=== PATIENT | female | born 1945 | race Caucasian/White ===

== ENCOUNTER → 2016-09-27 | Outpatient (CLI) | payer MEDICARE ==
[2016-09-27 15:08] LABS: CH 30.1; CHCM 32.3; HCT 43.8 % (34.0-46.0); HDW 2.46; HGB 13.9 gm/dL (11.4-16.0); MCH 29.8 pg (25.0-35.0); MCHC 31.8 g/dL (31.0-37.0); MCV 93.6 fL (80.0-100.0); Mean Platelet Volume 8.5; RBC 4.68 m/uL (3.80-5.40); RDW 13.6 % (11.5-15.5); WBC 5.7 k/uL (3.8-10.6)
[2016-09-27 15:12] LABS: ALT 57 U/L (9-52); AST 34 U/L (14-36); Alkaline Phosphatase 66 U/L (38-126); Anion Gap 13 mmol/L; Blood Urea Nitrogen 11 mg/dL (7-17); Calcium 9.8 mg/dL (8.4-10.2); Carbon Dioxide 27 mmol/L (22-30); Chloride 104 mmol/L (98-107); Cholesterol 210 mg/dL (<200); Glucose 93 mg/dL (74-99); HDL Cholesterol 94 mg/dL (40-60); Non-African American GFR(MDRD) >60 (>60 ml/min/1.73 sqM); Potassium 4.2 mmol/L (3.5-5.1); Sodium 144 mmol/L (137-145); Total Protein 7.9 g/dL (6.3-8.2); Triglycerides 94 mg/dL (<150)
[2016-09-27 15:15] LABS: Rheumatoid Factor, Qnt 42 IU/mL (<12)
[2016-09-27 15:54] LABS: Hemoglobin A1C 5.1 % (4.2-6.1)
[2016-09-27 16:24] LABS: Erythrocyte Sedimentation Rate 13 mm/hr (0-20)
== END | disposition home or self-care (01) ==
LOC: LABWHC1 14:22
PROVIDERS: ATTEND Family Medicine
DX: Z01.812 Encounter for preprocedural laboratory examination (principal); H93.19 Tinnitus, unspecified ear; R51 Headache; I10 Essential (primary) hypertension; Z79.899 Other long term (current) drug therapy
CPT/HCPCS: 36415; 80053; 80061; 83036; 84443; 85027; 85652; 86431

== ENCOUNTER → 2016-10-04 | Outpatient (CLI) | payer MEDICARE ==
--- NOTE | 2016-10-04 14:54 | MR ---
EXAMINATION TYPE: MR iac wo/w con DATE OF EXAM: 10/04/2016 1:06 PM COMPARISON: NONE, no prior MRI or CT available at this location. HISTORY: Tinnitus, hear loss, cholesteatoma CONTRAST: Performed utilizing 15 mL intravenous MultiHance gadolinium contrast. TECHNIQUE: Multiplanar, multiecho imaging on a 3.0 Freda magnet is performed through the brain. Atte ntion is paid to the internal auditory canals with thin section imaging. Postcontrast imaging is per formed through the internal auditory canals. FINDINGS: Craniovertebral junction is normal. The pituitary is normal. Diffusion-weighted imaging i s performed. No suspicious hyperintensity is present to suggest an acute intracranial infarct or acu te ischemic area. Signal within the brain has scattered punctate white matter changes in the centrum semiovale and periventricular regions. Findings are nonspecific but could be related to chronic whit e matter ischemic changes. Thin section imaging is performed through the internal auditory canals and cerebellar pontine angles. No cerebellar pontine angle masses are evident. The internal auditory canals appear normal without expansion or erosion. Postcontrast imaging was performed. No suspicious enhancement is evident wi thin the internal auditory canals or the included portions of the brain. There is fluid within left mastoid air cells. Mild mastoiditis may be present. Clinical correlation i s recommended. Portion of the signal could be related to prior mastoidectomy posterior to the middle ear. IMPRESSIONS: 1. Post left mastoidectomy. Small amount of fluid at the inferior residual mastoid air cells may nael in present, correlate for mild mastoiditis. Suspicious recurrent cholesteatoma is not evident. 2. Scattered periventricular white matter hyperintensities, likely on the basis of chronic white fariba er ischemic type changes.
== END | disposition home or self-care (01) ==
LOC: RADMRIMAIN 10:39
PROVIDERS: ATTEND Otolaryngology
DX: R90.82 White matter disease, unspecified (principal); H91.90 Unspecified hearing loss, unspecified ear; H93.19 Tinnitus, unspecified ear; H71.90 Unspecified cholesteatoma, unspecified ear; Z98.890 Other specified postprocedural states
CPT/HCPCS: 70553; A9577

== ENCOUNTER → 2018-08-20 | Outpatient (CLI) | payer MEDICARE ==
--- NOTE | 2018-08-21 13:33 | MM ---
Reason for exam: screening (asymptomatic). Last mammogram was performed 1 year and 1 month ago. History: Patient is postmenopausal. Took estrogen for 10 years. Physical Findings: A clinical breast exam by your physician is recommended on an annual basis and results should be correlated with mammographic findings. MG 3D Screening Mammo W/Cad Bilateral CC and MLO view(s) were taken. Prior study comparison: July 23, 2017, bilateral MG 3d screening mammo w/cad. July 05, 2016, bilateral MG screening mammo w CAD. The breast tissue is heterogeneously dense. This may lower the sensitivity of mammography. Benign appearing bilateral calcifications. No suspicious abnormality. No significant changes when compared with prior studies. ASSESSMENT: Benign, BI-RAD 2 RECOMMENDATION: Routine screening mammogram of both breasts in 1 year.
== END ==
LOC: RADMAMWWP 11:16
PROVIDERS: ATTEND Family Medicine
DX: Z12.31 Encounter for screening mammogram for malignant neoplasm of breast (principal)
CPT/HCPCS: 77063; 77067

== ENCOUNTER → 2019-03-18 | Outpatient (CLI) | payer MEDICARE | END | disposition home or self-care (01) | LOC: NEUROMAIN 08:53 | PROVIDERS: ATTEND Otolaryngology | DX: Z53.9 Procedure and treatment not carried out, unspecified reason (principal) ==

== ENCOUNTER → 2019-04-24 | Outpatient (CLI) | payer MEDICARE ==
--- NOTE | 2019-04-25 14:22 | US ---
EXAMINATION TYPE: US kidneys/renal and bladder DATE OF EXAM: 04/24/2019 COMPARISON: US 2016 CLINICAL HISTORY: N39.0 UTI. Recurrent UTI EXAM MEASUREMENTS: Right Kidney: 10.5 x 5.3 x 5.2 cm Left Kidney: 10.6 x 5.3 x 5.2 cm Right Kidney: no hydronephrosis, multiple echogenic foci scattered throughout Left Kidney: no hydronephrosis, multiple echogenic foci scattered throughout Bladder: not fully distended IMPRESSION: 1. No suspicious changes renal ultrasound.
== END | disposition home or self-care (01) ==
LOC: RADUSWWP 16:07
PROVIDERS: ATTEND Family Medicine
DX: N39.0 Urinary tract infection, site not specified (principal)
CPT/HCPCS: 76770

== ENCOUNTER → 2019-06-24 | Outpatient (CLI) | payer MEDICARE ==
--- NOTE | 2019-07-03 18:14 | EEG ---
ELECTROENCEPHALOGRAM REPORT VIDEO-ASSISTED ELECTRONYSTAGMOGRAM: VNG INDICATIONS: Vertigo beginning in November 2018 overnight and currently getting better. Dizziness can be provoked by rolling the body right or left, going from a lying to a seated position or turning the head left or right and movements of the head. VNG FINDINGS: Saccades shows intact peak velocities, accuracies and latencies. Gaze with fixation elicits no nystagmus in any of the directions of gaze, including centrally with vision denied. Tracking shows no breakups. Optokinetic nystagmus showed no asymmetries. Static position testing in 6 different positions with eyes opened and then with vision denied shows no nystagmus. Dynamic position testing not done due to limited mobility. Caloric testing shows 11% weakness in the left ear, which is within normal limits. IMPRESSIONS: Unremarkable VNG study. MMODL / IJN: [id number] /
== END | disposition home or self-care (01) ==
LOC: NEUROMAIN 11:56
PROVIDERS: ATTEND Otolaryngology
DX: R42 Dizziness and giddiness (principal)
CPT/HCPCS: 92537; 92540

== ENCOUNTER → 2019-09-09 | Outpatient (CLI) | payer MEDICARE ==
--- NOTE | 2019-09-10 13:42 | MM ---
Reason for exam: screening (asymptomatic). Last mammogram was performed 1 year and 1 month ago. History: Patient is postmenopausal. Took estrogen for 10 years. Physical Findings: A clinical breast exam by your physician is recommended on an annual basis and results should be correlated with mammographic findings. MG 3D Screening Mammo W/Cad Bilateral CC and MLO view(s) were taken. Prior study comparison: August 20, 2018, bilateral MG 3d screening mammo w/cad. July 23, 2017, bilateral MG 3d screening mammo w/cad. The breast tissue is heterogeneously dense. This may lower the sensitivity of mammography. Stable benign calcifications. No significant changes when compared with prior studies. ASSESSMENT: Benign, BI-RAD 2 RECOMMENDATION: Routine screening mammogram of both breasts in 1 year.
== END | disposition home or self-care (01) ==
LOC: RADMAMWWP 10:53
PROVIDERS: ATTEND Family Medicine
DX: Z12.31 Encounter for screening mammogram for malignant neoplasm of breast (principal); Z80.3 Family history of malignant neoplasm of breast
CPT/HCPCS: 77063; 77067

== ENCOUNTER → 2021-01-31 | Outpatient (CLI) | payer MEDICARE ==
--- NOTE | 2021-02-02 08:27 | MM ---
Reason for exam: screening (asymptomatic). Last mammogram was performed 1 year and 5 months ago. History: Patient is postmenopausal. Took estrogen for 10 years. Physical Findings: A clinical breast exam by your physician is recommended on an annual basis and results should be correlated with mammographic findings. MG 3D Screening Mammo W/Cad Bilateral CC and MLO view(s) were taken. Prior study comparison: September 09, 2019, bilateral MG 3d screening mammo w/cad. August 20, 2018, bilateral MG 3d screening mammo w/cad. The breast tissue is heterogeneously dense. This may lower the sensitivity of mammography. There are benign appearing round, linear, vascular calcifications bilaterally. There is no discrete abnormality. ASSESSMENT: Benign, BI-RAD 2 RECOMMENDATION: Routine screening mammogram of both breasts in 1 year.
== END | disposition home or self-care (01) ==
LOC: RADMAMWWP 10:57
PROVIDERS: ATTEND Family Medicine
DX: Z12.31 Encounter for screening mammogram for malignant neoplasm of breast (principal); Z78.0 Asymptomatic menopausal state
CPT/HCPCS: 77063; 77067

== ENCOUNTER → 2022-02-28 | Outpatient (CLI) | payer MEDICARE ==
--- NOTE | 2022-03-01 08:06 | MM ---
Reason for Exam: Screening (asymptomatic). Last mammogram was performed 1 year(s) and 1 month(s) ago. Patient History: Menarche at age 12. First Full-Term at age 21. Left ovary removed at age 51. Right ovary removed at age 51. Hysterectomy at age 51. Postmenopausal. Patient used Estrogen for 10 years. Risk Values: Ara 5 year model risk: 1.6%. NCI Lifetime model risk: 3.2%. Prior Study Comparison: 08/20/2018 Bilateral Screening Mammogram, [facility]. 09/09/2019 Bilateral Screening Mammogram, [facility]. 01/31/2021 Bilateral Screening Mammogram, [facility]. Tissue Density: The breast tissue is heterogeneously dense. This may lower the sensitivity of mammography. Findings: Analyzed By CAD. There is no suspicious group of microcalcifications or new suspicious mass in either breast. Stable benign calcifications noted bilaterally. Overall Assessment: Benign, BI-RAD 2 Management: Screening Mammogram of both breasts in 1 year. A clinical breast exam by your physician is recommended on an annual basis and results should be correlated with mammographic findings. Electronically signed and approved by: Jonathan Henriquez M.D. Radiologis
== END | disposition home or self-care (01) ==
LOC: RADMAMWWP 11:18
PROVIDERS: ATTEND Family Medicine
DX: Z12.31 Encounter for screening mammogram for malignant neoplasm of breast (principal); R92.1 Mammographic calcification found on diagnostic imaging of breast; Z78.0 Asymptomatic menopausal state
CPT/HCPCS: 77063; 77067

== ENCOUNTER → 2023-05-23 | Outpatient (CLI) | payer MEDICARE ==
--- NOTE | 2023-05-24 14:20 | MR ---
EXAMINATION TYPE: MR liver wo/w con DATE OF EXAM: 05/23/2023 1:11 PM CLINICAL INDICATION:Female, 77 years old with history of K76.9 LIVER DISEASE, UNSPECIFIED; , Liver le erich. COMPARISON: CT scan abdomen from 04/26/2011 ultrasound 04/24/2019.. TECHNIQUE: Multiplanar multi-sequence imaging was performed without contrast. Post contrast imaging was performed. Post IV contrast subtraction images were also submitted for review. IV Contrast: 7 cc Gadavist FINDINGS: LOWER CHEST: No gross irregularity. ABDOMEN Liver: No evidence for hepatic steatosis or cirrhosis. High T2 low T1 signal lesion in the right hepa tic lobe segment 8 measuring 15 x 14 mm. Postcontrast imaging demonstrates arterial phase enhancement which may be partially discontinuous gradual filling in and it persists on delayed imaging. Additional observations within the right hepatic lobe more anteriorly of arterial phase enhancement w ith eventual isoattenuation to background liver on delayed imaging. This lesion and other areas along the periphery also present which do not persist on delayed imaging suggestive of vascular shunting p henomenon. No suspicious observations within the liver. Gallbladder and Bile ducts: There is dilation of the biliary system extrahepatic common bile duct nasrin suring up to 10 mm in the common hepatic duct measuring up to 13 mm. There is intrahepatic biliary di lation worsening left hepatic lobe. Gallbladder surgically absent. Pancreas: No ductal dilation. No evidence for solid mass. No abnormal postcontrast enhancement. Spleen: Normal for size. Adrenal glands: Unremarkable. Kidneys: Bilateral subcentimeter high T2 probable renal cysts. No evidence for obstructive uropathy. No suspicious renal masses. No abnormal postcontrast enhancement. Stomach and Bowel: No evidence for bowel wall thickening or evidence for obstruction.. Peritoneum: No evidence of pneumoperitoneum or free fluid. Vasculature: No aortic aneurysm. Musculoskeletal: The osseous structures appear intact. Lymph Nodes: No gross evidence for lymphadenopathy. Abdominal wall: Unremarkable. IMPRESSION: 1. Right hepatic lobe lesion measuring 15 x 14 mm with enhancement characteristics favoring benign e tiology. Finding could represent hemangioma versus adenoma. No recent priors were available at the ti me of this dictation. This finding may been present 2010 where it is felt to be partially in the fiel d-of-view. No suspicious liver observations. 2. Dilation of the biliary system which can be seen in the normal setting of postcholecystectomy phy siology. Findings similar dating back to 2010.
== END | disposition home or self-care (01) ==
LOC: RADMRIMAIN 12:02
PROVIDERS: ATTEND Family Medicine
DX: K76.9 Liver disease, unspecified (principal); K83.8 Other specified diseases of biliary tract
CPT/HCPCS: 74183; A9585

== ENCOUNTER 2023-07-24 10:47 | Day surgery (SDC) | payer MEDICARE ==
[~2023-07-24 10:47] MED LIST: LACTATED RINGERS 1,000 ML IV SCH; LIDOCAINE 1% (10MG/ML) FOR IV START INTRADERMA PRN
[2023-07-24 11:52] VITALS: TEMP 98.8
[2023-07-24] MEDS ORDERED: LIDOCAINE 1% INJ 10MG/ML (20 ML MDV) ONE (12:14)
[2023-07-24] MEDS ORDERED: PROPOFOL 10 MG/ML 20 ML VIAL IV ONE (12:14)
--- NOTE | 2023-07-24 12:32 | P.PCN ---
Date of Procedure: 07/24/23 Procedure(s) Performed: BRIEF HISTORY: Patient is a 77-year-old pleasant white female scheduled for an elective colonoscopy as a part of evaluation of lower abdominal pain and change in bowel habits. PROCEDURE PERFORMED: Colonoscopy with snare polypectomy. PREOPERATIVE DIAGNOSIS: Lower abdominal pain and change in bowel habits. IV sedation per Anesthesia. PROCEDURE: After informed consent was obtained, the patient, was brought into the endoscopy unit. IV sedation was administered by Anesthesia under continuous monitoring. Digital rectal examination was normal. Initially the Olympus CF-160 flexible video colonoscope was then inserted in the rectum, gradually advanced into the cecum without any difficulty. Careful examination was performed as the scope was gradually being withdrawn. Ileocecal valve and the appendiceal orifice were visualized and appeared normal. Prep was excellent. Mucosa of the cecum, a normal. Heme ascending colon there was a 5 mm and 7 mm polyp removed by snare polypectomy. Rest of the ascending colon, transverse colon, descending colon appeared normal. In the sigmoid colon there was a 3 mm and a 5 mm polyp removed by snare polypectomy.in the distal rectum there was a 1 cm polyp removed by snare polypectomy. Scattered sigmoid diverticula seen. Retroflexion was performed in the rectum and no lesions were seen. The patient tolerated the procedure well. IMPRESSION: 5 mm and 7 mm ascending colon polyp status post polypectomy 3 mm and 5 mm; sigmoid polyp status post polypectomy 1 cm distal rectal polyp status post polypectomy Scattered sigmoid diverticulosis RECOMMENDATIONS: Findings of this examination were discussed with the patient as well as a family.. She was advised to follow with the biopsy results. If the biopsy reveals adenoma she can have a repeat colonoscopy in 3 years.
[2023-07-24 12:41] VITALS: PULSE 72; RESP 16
[2023-07-24 13:04] VITALS: BP 138/84
== END 2023-07-24 13:27 | disposition home or self-care (01) ==
LOC: ORWHC2ENDO 10:47
PROVIDERS: ATTEND Internal Medicine Gastroenterology
DX: D12.5 Benign neoplasm of sigmoid colon (principal); D12.2 Benign neoplasm of ascending colon; D12.8 Benign neoplasm of rectum; K57.30 Diverticulosis of large intestine without perforation or abscess without bleeding; Z88.8 Allergy status to other drugs, medicaments and biological substances; Z88.1 Allergy status to other antibiotic agents; I10 Essential (primary) hypertension; Z79.899 Other long term (current) drug therapy
CPT/HCPCS: 88305; 45385; J2001; J2704

== ENCOUNTER 2023-09-27 13:52 | Emergency (ER) | payer MEDICARE ==
[2023-09-27 14:07] VITALS: BP 144/81; PULSE 77; RESP 20; TEMP 97.9
--- NOTE | 2023-09-27 14:39 | ED ---
ENT HPI - General Chief complaint: ENT Stated complaint: Difficulty Swallowing Time Seen by Provider: 09/27/23 14:25 Source: patient, RN notes reviewed Mode of arrival: ambulatory Limitations: no limitations - History of Present Illness Initial comments: Patient is a 77-year-old female presented to ER with a chief complaint of painful swallowing. Patient states this has been going on since April 2023 and she has seen 5 providers with no answers. Patient recently seen ENT, Dr. Tsai. She states she had 2 sinus infections and was treated with Z-Vignesh and steroids which improved her symptoms. She states she has painful swallowing and pain on the left side of back of throat. Patient denies any difficulty swallowing or breathing. Denies any fevers, chills, night sweats, chest pain, shortness of breath. - Related Data Home Medications Medication Instructions Recorded Confirmed Cranberry Conc/C/Bacill Coag 1 tab PO DAILY 08/22/15 07/24/23 [Cranberry Tablet] Fexofenadine/Pseudoephedrine 1 tab PO DAILY 08/22/15 07/24/23 [Natasha-D 24 Hour Tablet] Folic Acid 1 mg PO DAILY 08/22/15 07/24/23 Hydroxychloroquine Sulfate 200 mg PO DAILY 08/22/15 07/24/23 [Plaquenil] Methotrexate Sodium (Pf) 25 mg SQ CEDEÑO 12/24/15 07/24/23 [Methotrexate 50 mg/2 ml Vial] Cholecalciferol (Vitamin D3) 1 tab PO DAILY 07/23/23 07/24/23 [Vitamin D3 (50 Mcg = 2000 Iu) Chew Tab] Leucovorin Calcium 5 mg PO Q7D 07/23/23 07/24/23 Levothyroxine Sodium [Synthroid] 75 mcg PO DAILY 07/23/23 07/24/23 Magnesium Chloride [Slow-Mag] 1 tab PO DAILY 07/23/23 07/24/23 amLODIPine BESYLATE 5 mg PO DAILY 07/23/23 07/24/23 busPIRone HCL [Buspar] 7.5 mg PO BID 07/23/23 07/24/23 Previous Rx's Medication Instructions Recorded methylPREDNISolone [Medrol Dose 0 mg PO DIRECTED #1 packet 09/27/23 Pack] Allergies Allergy/AdvReac Type Severity Reaction Status Date / Time aspirin Allergy Anaphylaxis Verified 09/27/23 13:58 ceftriaxone sodium Allergy Nausea & Verified 09/27/23 13:58 [From Rocephin] Vomiting & Diarrhea ciprofloxacin [From Cipro] Allergy Nausea & Verified 09/27/23 13:58 Vomiting & Diarrhea ciprofloxacin HCl Allergy Nausea & Verified 09/27/23 13:58 [From Cipro] Vomiting & Diarrhea morphine Allergy Anaphylaxis Verified 09/27/23 13:58 adhesive tape AdvReac Rash/Hives Verified 09/27/23 13:58 amoxicillin trihydrate AdvReac Nausea & Verified 09/27/23 13:58 [From Augmentin] Vomiting & Diarrhea codeine phosphate AdvReac Nausea & Verified 09/27/23 13:58 [From Robitussin A-C] Vomiting & Diarrhea dirithromycin [From Dynabac] AdvReac Nausea & Verified 09/27/23 13:58 Vomiting & Diarrhea doxycycline AdvReac Nausea & Verified 09/27/23 13:58 Vomiting & Diarrhea guaifenesin AdvReac Nausea & Verified 07/24/23 11:18 [From Robitussin A-C] Vomiting & Diarrhea potassium clavulanate AdvReac Nausea & Verified 07/24/23 11:18 [From Augmentin] Vomiting & Diarrhea trazodone AdvReac Unknown Verified 07/24/23 11:18 Review of Systems ROS Statement: Those systems with pertinent positive or pertinent negative responses have been documented in the HPI. ROS Other: All systems not noted in ROS Statement are negative. Past Medical History Past Medical History: Hypertension, Rheumatoid Arthritis (RA), Thyroid Disorder Additional Past Medical History / Comment(s): diverticulosis, c-diff, hypothyroid, benign liver lesion, hemorrhoids History of Any Multi-Drug Resistant Organisms: C-DIFF Date of last positivie culture/infection: 2015 MDRO Source:: stool Past Surgical History: Adenoidectomy, Cholecystectomy, Hysterectomy, Tonsillectomy Additional Past Surgical History / Comment(s): bowel resection, bilat. ear sx.- wears hearing aids Past Anesthesia/Blood Transfusion Reactions: No Reported Reaction Past Psychological History: Anxiety, Depression Smoking Status: Former smoker Past Alcohol Use History: None Reported Past Drug Use History: None Reported - Past Family History Father Family Medical History: Myocardial Infarction (PR) Mother Additional Family Medical History / Comment(s): age 98 General Exam Limitations: no limitations General appearance: alert, in no apparent distress Head exam: Present: atraumatic, normocephalic, normal inspection Eye exam: Present: normal appearance, PERRL, EOMI. Absent: scleral icterus, conjunctival injection, periorbital swelling ENT exam: Present: normal exam, normal oropharynx (Multiple enlarged papillae posterior left tongue), mucous membranes moist, TM's normal bilaterally Neck exam: Present: normal inspection. Absent: tenderness, meningismus, lymphadenopathy Respiratory exam: Present: normal lung sounds bilaterally. Absent: respiratory distress, wheezes, rales, rhonchi, stridor Cardiovascular Exam: Present: regular rate, normal rhythm, normal heart sounds. Absent: systolic murmur, diastolic murmur, rubs, gallop, clicks Neurological exam: Present: alert, oriented X3, CN II-XII intact Psychiatric exam: Present: normal affect, normal mood Skin exam: Present: warm, dry, intact, normal color. Absent: rash Course Vital Signs 09/27/23 13:55 Temperature 97.9 F Pulse Rate 77 Respiratory 20 Rate Blood Pressure 144/81 O2 Sat by Pulse 98 Oximetry Medical Decision Making - Medical Decision Making Was pt. sent in by a medical professional or institution (, PA, [employer], urgent care, hospital, or shelter...) When possible be specific @ -No Did you speak to anyone other than the patient for history (EMS, parent, family, police, friend...)? What history was obtained from this source @ - providing some past medical history Did you review nursing and triage notes (agree or disagree)? Why? @ -I reviewed and agree with nursing and triage notes Were old charts reviewed (outside hosp., previous admission, EMS record, old EKG, old radiological studies, urgent care reports/EKG's, shelter records)? Report findings @ -No old charts were reviewed Differential Diagnosis (chest pain, altered mental status, abdominal pain women, abdominal pain men, vaginal bleeding, weakness, fever, dyspnea, syncope, headache, dizziness, GI bleed, back pain, seizure, CVA, palpatations, mental health, musculoskeletal)? @ -Strep pharyngitis, abscess, dental carry, tonsillitis, viral illness this list is not meant to be all-inclusive EKG interpreted by me (3pts min.). @ -None X-rays interpreted by me (1pt min.). @ -None done CT interpreted by me (1pt min.). @ -None done U/S interpreted by me (1pt. min.). @ -None done What testing was considered but not performed or refused? (CT, X-rays, U/S, labs)? Why? @ -None What meds were considered but not given or refused? Why? @ -None Did you discuss the management of the patient with other professionals (professionals i.e. Dr., PA, [employer], lab, RT, psych nurse, psychosocial rehabilitation counselor, pc tech, teacher, ship's officer, caser up)? Give summary @ -No Was smoking cessation discussed for >3mins.? @ -No Was critical care preformed (if so, how long)? @ -No Were there social determinants of health that impacted care today? How? (Homelessness, low income, unemployed, alcoholism, drug addiction, transportation, low edu. Level, literacy, decrease access to med. care, detention, rehab)? @ -No Was there de-escalation of care discussed even if they declined (Discuss DNR or withdrawal of care, Hospice)? DNR status @ -No What co-morbidities impacted this encounter? (DM, HTN, Smoking, COPD, CAD, Cancer, CVA, ARF, Chemo, Hep., AIDS, mental health diagnosis, sleep apnea, morbid obesity)? @ -None Was patient admitted / discharged? Hospital course, mention meds given and route, prescriptions, significant lab abnormalities, going to OR and other pertinent info. @ -Discharge. Patient is 77-year-old female presented to ER with a chief complaint of painful swallowing. Vitals stable. History and physical exam were completed. Patient in no signs of acute distress. Exam significant for multiple enlarged papille on posterior left tongue. No signs of infection or drainable abscess. Oropharynx exhibited appropriate movement. I discussed findings with patient. Advised her to follow-up with Dr. Jay in the next week. Patient prescribed Medrol Dosepak for symptom control as she stated this helped in the past. Return parameters were discussed. Patient discharged in stable condition with follow-up to PCP/ENT. Patient expressed understanding and agreement with care plan. Undiagnosed new problem with uncertain prognosis? @ -No Drug Therapy requiring intensive monitoring for toxicity (Heparin, Nitro, Insulin, Cardizem)? @ -No Were any procedures done? @ -No Diagnosis/symptom? @ -Painful swallowing/Papillitis Acute, or Chronic, or Acute on Chronic? @ -Acute Uncomplicated (without systemic symptoms) or Complicated (systemic symptoms)? @ -Uncomplicated Side effects of treatment? @ -No Exacerbation, Progression, or Severe Exacerbation? @ -No Poses a threat to life or bodily function? How? (Chest pain, [place], PR, pneumonia, PE, COPD, DKA, ARF, appy, cholecystitis, CVA, Diverticulitis, Homicidal, Suicidal, threat to staff... and all critical care pts) @ -No Disposition Clinical Impression: Sore throat, Papillitis Disposition: HOME SELF-CARE Condition: Stable Instructions (If sedation given, give patient instructions): Strep Throat (DC) Additional Instructions: Please follow-up with ENT, Dr. Jay in the next 1 to 2 days. Try warm salt water rinses and [id number] pain medications for symptom control. Return to the ER for any new or worsening symptoms. Prescriptions: methylPREDNISolone [Medrol Dose Pack] 0 mg PO DIRECTED #1 packet Is patient prescribed a controlled substance at d/c from ED?: No Referrals: Jase Lei MD [Primary Care Provider] - 1-2 days Ciro Tsai MD [STAFF PHYSICIAN] - 1-2 days Time of Disposition: 14:39
== END 2023-09-27 14:46 | disposition home or self-care (01) ==
LOC: EC 13:52
DX: J02.9 Acute pharyngitis, unspecified (principal); H46.02 Optic papillitis, left eye; I10 Essential (primary) hypertension; E07.9 Disorder of thyroid, unspecified; F41.9 Anxiety disorder, unspecified; F32.A Depression, unspecified; Z87.891 Personal history of nicotine dependence; Z79.899 Other long term (current) drug therapy; Z79.890 Hormone replacement therapy; Z88.1 Allergy status to other antibiotic agents; Z88.5 Allergy status to narcotic agent; Z88.8 Allergy status to other drugs, medicaments and biological substances
CPT/HCPCS: 99283

== ENCOUNTER 2023-11-05 11:06 | Emergency (ER) | payer MEDICARE ==
[2023-11-05 11:22] VITALS: RESP 18
[2023-11-05 11:53] LABS: Basophils # (A) 0.1 k/uL (0-0.2); Basophils % (A) 1 %; Eosinophils # (A) 0.1 k/uL (0-0.7); Eosinophils % (A) 2 %; HCT 44.9 % (34.0-46.0); HGB 14.6 gm/dL (11.4-16.0); Lymphocytes # (A) 1.6 k/uL (1.0-4.8); Lymphocytes % (A) 23 %; MCH 30.3 pg (25.0-35.0); MCHC 32.6 g/dL (31.0-37.0); Mean Platelet Volume 10.2; Monocytes # (A) 0.4 k/uL (0-1.0); Monocytes % (A) 5 %; Neutrophils # (A) 4.8 k/uL (1.3-7.7); Neutrophils % (A) 68 %; Platelet Count 193 k/uL (150-450); RBC 4.83 m/uL (3.80-5.40); RDW 13.4 % (11.5-15.5); WBC 7.1 k/uL (3.8-10.6)
[2023-11-05 12:11] LABS: ALT 18 U/L (4-34); AST 27 U/L (14-36); African American GFR (CKD) >90 (>60 ml/min/1.73 sqM); Albumin 4.1 g/dL (3.5-5.0); Alkaline Phosphatase 73 U/L (38-126); Anion Gap 6 mmol/L; Blood Urea Nitrogen 17 mg/dL (7-17); Calcium 9.4 mg/dL (8.4-10.2); Carbon Dioxide 29 mmol/L (22-30); Chloride 106 mmol/L (98-107); Glucose 91 mg/dL (74-99); Lipase 188 U/L (23-300); Non-African American GFR(CKD) 87 (>60 ml/min/1.73 sqM); Potassium 3.5 mmol/L (3.5-5.1); Sodium 141 mmol/L (137-145); Total Bilirubin 1.1 mg/dL (0.2-1.3); Total Protein 7.3 g/dL (6.3-8.2)
--- NOTE | 2023-11-05 12:19 | ED ---
Abdominal Pain HPI - General Chief Complaint: Abdominal Pain Stated Complaint: Bowel Blockage Time Seen by Provider: 11/05/23 11:22 Source: patient, RN notes reviewed Mode of arrival: ambulatory Limitations: no limitations - History of Present Illness Initial Comments: 78-year-old female presents emergency department with chief complaint of abdominal pain. Patient states she had a recent tongue biopsy which she received anesthesia for. Patient states she has not been able to have good bowel movement since. She states that she has had prior colon resections from diverticulitis. She states she has tried some prune juice and medications without good relief. Patient denies any reports of fevers no dysuria she states she has lower abdominal pain. - Related Data Home Medications Medication Instructions Recorded Confirmed Cranberry Conc/C/Bacill Coag 1 tab PO HS 08/22/15 11/05/23 [Cranberry Tablet] Folic Acid 1 mg PO W/SUPPER 08/22/15 11/05/23 Hydroxychloroquine Sulfate 200 mg PO W/SUPPER 08/22/15 11/05/23 [Plaquenil] Methotrexate Sodium (Pf) 25 mg SQ CEDEÑO 12/24/15 11/05/23 [Methotrexate 50 mg/2 ml Vial] Cholecalciferol (Vitamin D3) 50 mcg PO W/SUPPER 07/23/23 11/05/23 [Vitamin D3 (50 Mcg = 2000 Iu) Chew Tab] Leucovorin Calcium 5 mg PO SA@1800 07/23/23 11/05/23 Levothyroxine Sodium [Synthroid] 75 mcg PO AC-BRKFST 07/23/23 11/05/23 Magnesium Chloride [Slow-Mag] 64 mg PO W/SUPPER 07/23/23 11/05/23 busPIRone HCL [Buspar] 7.5 mg PO BID 07/23/23 11/05/23 Fexofenadine HCl [Natasha Allergy] 180 mg PO HS 11/05/23 11/05/23 amLODIPine [Norvasc] 5 mg PO W/SUPPER 11/05/23 11/05/23 Previous Rx's Medication Instructions Recorded Docusate [Colace] 100 mg PO BID PRN #10 capsule 11/05/23 Allergies Allergy/AdvReac Type Severity Reaction Status Date / Time adhesive tape Allergy Rash/Hives Verified 11/05/23 14:25 aspirin Allergy Anaphylaxis Verified 11/05/23 14:20 morphine Allergy Anaphylaxis Verified 11/05/23 14:20 amoxicillin trihydrate AdvReac Nausea & Verified 11/05/23 14:20 [From Augmentin] Vomiting & Diarrhea ceftriaxone sodium AdvReac Nausea & Verified 11/05/23 14:25 [From Rocephin] Vomiting & Diarrhea ciprofloxacin [From Cipro] AdvReac Nausea & Verified 11/05/23 14:25 Vomiting & Diarrhea ciprofloxacin HCl AdvReac Nausea & Verified 11/05/23 14:25 [From Cipro] Vomiting & Diarrhea codeine phosphate AdvReac Nausea & Verified 11/05/23 14:20 [From Robitussin A-C] Vomiting & Diarrhea dirithromycin [From Dynabac] AdvReac Nausea & Verified 11/05/23 14:20 Vomiting & Diarrhea doxycycline AdvReac Nausea & Verified 11/05/23 14:20 Vomiting & Diarrhea guaifenesin AdvReac Nausea & Verified 11/05/23 14:20 [From Robitussin A-C] Vomiting & Diarrhea potassium clavulanate AdvReac Nausea & Verified 11/05/23 14:20 [From Augmentin] Vomiting & Diarrhea trazodone AdvReac Unknown Verified 11/05/23 14:20 Review of Systems ROS Statement: Those systems with pertinent positive or pertinent negative responses have been documented in the HPI. ROS Other: All systems not noted in ROS Statement are negative. Past Medical History Past Medical History: Hypertension, Rheumatoid Arthritis (RA), Thyroid Disorder Additional Past Medical History / Comment(s): diverticulosis, c-diff, hypothyroid, benign liver lesion, hemorrhoids History of Any Multi-Drug Resistant Organisms: C-DIFF Date of last positivie culture/infection: 2015 MDRO Source:: stool Past Surgical History: Adenoidectomy, Cholecystectomy, Hysterectomy, Tonsillectomy Additional Past Surgical History / Comment(s): bowel resection, bilat. ear sx.- wears hearing aids Past Anesthesia/Blood Transfusion Reactions: No Reported Reaction Past Psychological History: Anxiety, Depression Smoking Status: Former smoker Past Alcohol Use History: None Reported Past Drug Use History: None Reported - Past Family History Father Family Medical History: Myocardial Infarction (AR) Mother Additional Family Medical History / Comment(s): age 98 General Exam Limitations: no limitations General appearance: alert, in no apparent distress Head exam: Present: atraumatic, normocephalic, normal inspection Respiratory exam: Present: normal lung sounds bilaterally. Absent: respiratory distress, wheezes, rales, rhonchi, stridor Cardiovascular Exam: Present: regular rate, normal rhythm, normal heart sounds. Absent: systolic murmur, diastolic murmur, rubs, gallop, clicks GI/Abdominal exam: Present: soft, tenderness, normal bowel sounds. Absent: distended, guarding, rebound, rigid Back exam: Absent: CVA tenderness (R), CVA tenderness (L) Course Vital Signs 11/05/23 11/05/23 11:16 16:13 Temperature 98.3 F 98.7 F Pulse Rate 77 78 Respiratory 18 18 Rate Blood Pressure 140/74 108/74 O2 Sat by Pulse 97 95 Oximetry Medical Decision Making - Medical Decision Making Was pt. sent in by a medical professional or institution (, PA, CONTENT PUBLISHER, urgent care, hospital, or retirement...) When possible be specific @ -No Did you speak to anyone other than the patient for history (EMS, parent, family, police, friend...)? What history was obtained from this source @ -No Did you review nursing and triage notes (agree or disagree)? Why? @ -I reviewed and agree with nursing and triage notes Were old charts reviewed (outside hosp., previous admission, EMS record, old EKG, old radiological studies, urgent care reports/EKG's, retirement records)? Report findings @ -No old charts were reviewed Differential Diagnosis (chest pain, altered mental status, abdominal pain women, abdominal pain men, vaginal bleeding, weakness, fever, dyspnea, syncope, headache, dizziness, GI bleed, back pain, seizure, CVA, palpatations, mental health, musculoskeletal)? @ -Differential Abdominal Pain Women: Appendicitis, Cholecystitis, diverticulosis, ischemic bowel, pancreatitis, hepatitis, UTI, gastroenteritis, AAA, incarcerated hernia, bowel obstruction, constipation, inflammatory bowel, hepatitis, peptic ulcer disease, splenic infarction, perforated viscus, vulvitis, ovarian torsion, PID, kidney stone, placenta abruption, this is not meant to be an all-inclusive list EKG interpreted by me (3pts min.). @ -None X-rays interpreted by me (1pt min.). @ -None done CT interpreted by me (1pt min.). @ -CT abdomen pelvis showing no evidence of obstruction, no acute intra- abdominal process U/S interpreted by me (1pt. min.). @ -None done What testing was considered but not performed or refused? (CT, X-rays, U/S, labs)? Why? @ -None What meds were considered but not given or refused? Why? @ -None Did you discuss the management of the patient with other professionals (professionals i.e. DrAna, PA, CONTENT PUBLISHER, lab, RT, psych nurse, social and political studies professor, intellectual property lawyer, t eacher, custodial officer, case managers)? Give summary @ -No Was smoking cessation discussed for >3mins.? @ -No Was critical care preformed (if so, how long)? @ -No Were there social determinants of health that impacted care today? How? (Homelessness, low income, unemployed, alcoholism, drug addiction, transportation, low edu. Level, literacy, decrease access to med. care, correction, rehab)? @ -No Was there de-escalation of care discussed even if they declined (Discuss DNR or withdrawal of care, Hospice)? DNR status @ -No What co-morbidities impacted this encounter? (DM, HTN, Smoking, COPD, CAD, Cance r, CVA, ARF, Chemo, Hep., AIDS, mental health diagnosis, sleep apnea, morbid obesity)? @ -None Was patient admitted / discharged? Hospital course, mention meds given and route, prescriptions, significant lab abnormalities, going to OR and other pertinent info. @ -Discharge patient has chronic bowel issues which she does see GI for. Patient is concerned about obstruction which she does not have current obstruction. Patient will be discharged in stable condition with glycerin suppositories as she states this only helps for constipation Undiagnosed new problem with uncertain prognosis? @ -No Drug Therapy requiring intensive monitoring for toxicity (Heparin, Nitro, Insulin, Cardizem)? @ -No Were any procedures done? @ -No Diagnosis/symptom? @ -Abdominal pain Acute, or Chronic, or Acute on Chronic? @ -Acute Uncomplicated (without systemic symptoms) or Complicated (systemic symptoms)? @ -Uncomplicated Side effects of treatment? @ -No Exacerbation, Progression, or Severe Exacerbation? @ -No Poses a threat to life or bodily function? How? (Chest pain, USA, AR, pneumonia, PE, COPD, DKA, ARF, appy, cholecystitis, CVA, Diverticulitis, Homicidal, Suicidal, threat to staff... and all critical care pts) @ -No - Lab Data Result diagrams: 11/05/23 11:26 11/05/23 11:26 Lab Results 11/05/23 11/05/23 11/05/23 Range/Units 11:26 11:26 11:26 WBC 7.1 (3.8-10.6) k/uL RBC 4.83 (3.80-5.40) m/uL Hgb 14.6 (11.4-16.0) gm/dL Hct 44.9 (34.0-46.0) % MCV 93.0 (80.0-100.0) fL MCH 30.3 (25.0-35.0) pg MCHC 32.6 (31.0-37.0) g/dL RDW 13.4 (11.5-15.5) % Plt Count 193 (150-450) k/uL MPV 10.2 Neutrophils % 68 % Lymphocytes % 23 % Monocytes % 5 % Eosinophils % 2 % Basophils % 1 % Neutrophils # 4.8 (1.3-7.7) k/uL Lymphocytes # 1.6 (1.0-4.8) k/uL Monocytes # 0.4 (0-1.0) k/uL Eosinophils # 0.1 (0-0.7) k/uL Basophils # 0.1 (0-0.2) k/uL Sodium 141 (137-145) mmol/L Potassium 3.5 (3.5-5.1) mmol/L Chloride 106 (98-107) mmol/L Carbon Dioxide 29 (22-30) mmol/L Anion Gap 6 mmol/L BUN 17 (7-17) mg/dL Creatinine 0.62 (0.52-1.04) mg/dL Est GFR (CKD-EPI)AfAm >90 (>60 ml/min/1.73 sqM) Est GFR (CKD-EPI)NonAf 87 (>60 ml/min/1.73 sqM) Glucose 91 (74-99) mg/dL Plasma Lactic Acid Masoud (0.7-2.0) mmol/L Calcium 9.4 (8.4-10.2) mg/dL Total Bilirubin 1.1 (0.2-1.3) mg/dL AST 27 (14-36) U/L ALT 18 (4-34) U/L Alkaline Phosphatase 73 (38-126) U/L Total Protein 7.3 (6.3-8.2) g/dL Albumin 4.1 (3.5-5.0) g/dL Lipase 188 (23-300) U/L Urine Color Colorless Urine Appearance Clear (Clear) Urine pH 6.5 (5.0-8.0) Ur Specific [place] 1.006 (1.001-1.035) Urine Protein Negative (Negative) Urine Glucose (UA) Negative (Negative) Urine Ketones Negative (Negative) Urine Blood Negative (Negative) Urine Nitrite Negative (Negative) Urine Bilirubin Negative (Negative) Urine Urobilinogen <2.0 (<2.0) mg/dL Ur Leukocyte Esterase Moderate H (Negative) Urine RBC 2 (0-5) /hpf Urine WBC 1 (0-5) /hpf Ur Squamous Epith Cells 1 (0-4) /hpf Urine Bacteria Rare H (None) /hpf 11/05/23 Range/Units 11:26 WBC (3.8-10.6) k/uL RBC (3.80-5.40) m/uL Hgb (11.4-16.0) gm/dL Hct (34.0-46.0) % MCV (80.0-100.0) fL MCH (25.0-35.0) pg MCHC (31.0-37.0) g/dL RDW (11.5-15.5) % Plt Count (150-450) k/uL MPV Neutrophils % % Lymphocytes % % Monocytes % % Eosinophils % % Basophils % % Neutrophils # (1.3-7.7) k/uL Lymphocytes # (1.0-4.8) k/uL Monocytes # (0-1.0) k/uL Eosinophils # (0-0.7) k/uL Basophils # (0-0.2) k/uL Sodium (137-145) mmol/L Potassium (3.5-5.1) mmol/L Chloride (98-107) mmol/L Carbon Dioxide (22-30) mmol/L Anion Gap mmol/L BUN (7-17) mg/dL Creatinine (0.52-1.04) mg/dL Est GFR (CKD-EPI)AfAm (>60 ml/min/1.73 sqM) Est GFR (CKD-EPI)NonAf (>60 ml/min/1.73 sqM) Glucose (74-99) mg/dL Plasma Lactic Acid Masoud 1.1 (0.7-2.0) mmol/L Calcium (8.4-10.2) mg/dL Total Bilirubin (0.2-1.3) mg/dL AST (14-36) U/L ALT (4-34) U/L Alkaline Phosphatase (38-126) U/L Total Protein (6.3-8.2) g/dL Albumin (3.5-5.0) g/dL Lipase (23-300) U/L Urine Color Urine Appearance (Clear) Urine pH (5.0-8.0) Ur Specific [place] (1.001-1.035) Urine Protein (Negative) Urine Glucose (UA) (Negative) Urine Ketones (Negative) Urine Blood (Negative) Urine Nitrite (Negative) Urine Bilirubin (Negative) Urine Urobilinogen (<2.0) mg/dL Ur Leukocyte Esterase (Negative) Urine RBC (0-5) /hpf Urine WBC (0-5) /hpf Ur Squamous Epith Cells (0-4) /hpf Urine Bacteria (None) /hpf Disposition Clinical Impression: Abdominal pain, Constipation Disposition: HOME SELF-CARE Condition: Stable Instructions (If sedation given, give patient instructions): Abdominal Pain (ED) Additional Instructions: Please return to the Emergency Department if symptoms worsen or any other concerns. Prescriptions: Docusate [Colace] 100 mg PO BID PRN #10 capsule PRN Reason: Constipation Is patient prescribed a controlled substance at d/c from ED?: No Referrals: Jase Lei MD [Primary Care Provider] - 1-2 days Time of Disposition: 15:17
[2023-11-05 14:58] LABS: Appearance,Urine Clear (Clear); Bacteria,Urine Rare /hpf; Bilirubin,Urine Negative (Negative); Blood,Urine Negative (Negative); Color,Urine Colorless; Glucose,Urine (UA) Negative (Negative); Ketones,Urine Negative (Negative); Leukocyte Esterase,Urine Moderate (Negative); Nitrite,Urine Negative (Negative); PH, Urine 6.5 (5.0-8.0); Protein,Urine Negative (Negative); RBC,Urine 2 /hpf (0-5); Specific Gravity,Urine 1.006 (1.001-1.035); Squamous Epithelial Cell,Urine 1 /hpf (0-4); Urobilinogen,Urine <2.0 mg/dL (<2.0); WBC,Urine 1 /hpf (0-5)
--- NOTE | 2023-11-05 15:12 | CT ---
EXAMINATION TYPE: CT abdomen pelvis w con CT DLP: 941.5 mGycm, Automated exposure control for dose reduction was used. DATE OF EXAM: 11/05/2023 1:22 PM COMPARISON: CT abdomen pelvis most recent from 05/23/2023 CLINICAL INDICATION:Female, 78 years old with history of pain; Bowel blockage, abdominal pain TECHNIQUE: Axial CT abdomen pelvis w con;Sagittal and coronal reformats were created on a separate w orkstation. Contrast used:100 ml mL of Isovue 300 with IV Contrast, (none if empty) Oral contrast used: without Oral Contrast (none if empty) FINDINGS: LOWER CHEST: Unremarkable ABDOMEN LIVER: Unremarkable GALLBLADDER AND BILE DUCTS: Gallbladder is surgically absent with mild intrahepatic and extra hepatic biliary dilatation likely physiologic and a postcholecystectomy change. No evidence of choledocholit hiasis. PANCREAS: Unremarkable. SPLEEN: Unremarkable. ADRENAL GLANDS: Unremarkable. KIDNEYS AND URETERS: No evidence of hydronephrosis or renal calculus. The ureters are unremarkable. PELVIS BLADDER: Unremarkable REPRODUCTIVE: Unremarkable. ABDOMEN & PELVIS STOMACH AND BOWEL: No evidence of bowel obstruction. PERITONEUM/RETROPERITONEUM: No evidence of pneumoperitoneum or free fluid. VASCULATURE: No evidence of aortic aneurysm. MUSCULOSKELETAL: No acute osseous abnormalities LYMPH NODES: No gross evidence for lymphadenopathy. SOFT TISSUE/ABDOMINAL WALL: Unremarkable IMPRESSION: 1. No evidence for bowel obstruction. 2. Post surgical changes to the sigmoid colon.
[2023-11-05] MEDS: GLYCERIN ADULT SUPPOSITORY 1 EACH RECTAL STA (16:10)
[2023-11-05 16:35] VITALS: BP 108/74; PULSE 78; TEMP 98.7
== END 2023-11-05 16:15 | disposition home or self-care (01) ==
LOC: EC 11:06
DX: K59.00 Constipation, unspecified (principal); Z87.891 Personal history of nicotine dependence; Z88.8 Allergy status to other drugs, medicaments and biological substances; Z88.1 Allergy status to other antibiotic agents; Z88.5 Allergy status to narcotic agent
CPT/HCPCS: 36415; 80053; 83605; 83690; 85025; 81001; 74177; 99284; Q9967

== ENCOUNTER → 2023-11-29 | Outpatient (CLI) | payer MEDICARE ==
--- NOTE | 2023-12-02 11:12 | MM ---
Reason for Exam: Screening (asymptomatic). Last mammogram was performed 1 year(s) and 9 month(s) ago. Patient History: Menarche at age 12. First Full-Term at age 21. Left ovary removed at age 51. Right ovary removed at age 51. Hysterectomy at age 51. Postmenopausal. Patient used Estrogen for 10 years. Risk Values: Ara 5 year model risk: 1.5%. NCI Lifetime model risk: 2.8%. Prior Study Comparison: 09/09/2019 Bilateral Screening Mammogram, [facility]. 01/31/2021 Bilateral Screening Mammogram, [facility]. 02/28/2022 Bilateral MG 3D screening mammo w/cad, [facility]. Tissue Density: The breasts are heterogeneously dense, which may obscure small masses. Findings: Analyzed By CAD. Left breast biopsy clip. Right breast: There is no suspicious group of microcalcifications or new suspicious mass. Benign-appearing calcifications right breast. Left breast: There is no suspicious group of microcalcifications or new suspicious mass. Benign-appearing calcifications left breast. Overall Assessment: Benign, BI-RAD 2 Management: Screening Mammogram of both breasts in [address] [facility] will attempt to contact patient to return for supplemental views and ultrasound if indicated. Patient should continue monthly self-breast exams. A clinical breast exam by your physician is recommended on an annual basis. This exam should not preclude additional follow-up of suspicious palpable abnormalities. Note on Ara scores and lifetime risk: 1. A Ara score greater than 3% is considered moderate risk. If this is the case, consider specialist referral to assess eligibility for a risk reducing agent. 2. If overall lifetime risk for the development of breast cancer is 20% or higher, the patient may qualify for future screening with alternating mammogram and breast MRI. Electronically signed and approved by: Earnest Gardiner DO
== END | disposition home or self-care (01) ==
LOC: RADMAMWWP 13:33
PROVIDERS: ATTEND Internal Medicine
DX: Z12.31 Encounter for screening mammogram for malignant neoplasm of breast (principal); Z78.0 Asymptomatic menopausal state
CPT/HCPCS: 77063; 77067

== ENCOUNTER → 2024-02-21 | Outpatient (CLI) | payer MEDICARE ==
--- NOTE | 2024-02-21 16:25 | US ---
EXAMINATION TYPE: US kidneys/renal and bladder DATE OF EXAM: 02/21/2024 COMPARISON: 04/24/19, CT: 11/05/23 CLINICAL INDICATION: Female, 78 years old with history of N39.0 URINARY TRACT INFECTION, SITE NOT SPE CIFIED; frequent UTI's EXAM MEASUREMENTS: Right Kidney: 10.5 x 4.7 x 4.9 cm Left Kidney: 11.7 x 5.6 x 5.5 cm Right Kidney: No hydronephrosis or masses seen Left Kidney: cystic area seen mid pole in the renal sinus measuring 1.7 x 1.6 x 1.0cm Bladder: wnl Bilateral Jets seen: Yes There is no evidence for hydronephrosis at this point in time. No nephrolithiasis is seen. Left naga l sinus 1.7 cm thin-walled cyst. No solid masses are identified. Cortical medullary differentiation i s maintained bilaterally. The urinary bladder is anechoic. Bilateral ureteral jets are seen. IMPRESSION: 1. No hydronephrosis or nephrolithiasis. 2. Left renal sinus benign cyst.
== END | disposition home or self-care (01) ==
LOC: RADUSWWP 11:21
PROVIDERS: ATTEND Internal Medicine
DX: N39.0 Urinary tract infection, site not specified (principal)
CPT/HCPCS: 76770